=== PATIENT | male | born 1970 | race Caucasian/White ===

== ENCOUNTER 2023-11-06 07:21 | Outpatient (CLI) | payer BC, SELFPAY ==
--- NOTE | ~2023-11-06 | XR_ITS ---
XR shoulder LT min 2V DATE: 11/06/2023 07:53 INDICATION: Nontraumatic left shoulder pain TECHNIQUE: 4 views COMPARISON: None FINDINGS: No fracture or dislocation, periosteal reaction or bone destruction or abnormal soft tissue calcification. IMPRESSION: No significant abnormality Reviewed, dictated and finalized at location B. IMPRESSION: No significant abnormality
== END 2023-11-06 07:22 | disposition home or self-care (01) ==
LOC: ANHIMG 07:27
PROVIDERS: PCP Internal Medicine; Visit Provider Orthopaedic Surgery
DX: M77.8 Other enthesopathies, not elsewhere classified (principal)
CPT/HCPCS: 73030

== ENCOUNTER 2023-11-13 09:28 | Outpatient (CLI) | payer BC, SELFPAY ==
--- NOTE | ~2023-11-13 | MR_ITS ---
EXAMINATION: MR shoulder LT wo con DATE: 11/13/2023 10:02 INDICATION: Left shoulder pain and enthesopathy TECHNIQUE: Magnetic resonance imaging (MRI) of the left shoulder was performed without intravenous co ntrast. Sequences included axial PD-weighted FS FSE, coronal oblique PD-weighted FS FSE, coronal obli que T2-weighted FS FSE, sagittal PD-weighted FS FSE, and sagittal T1-weighted SE. COMPARISON: None. FINDINGS: Coracoacromial arch: The acromion undersurface is curved in morphology (type II). The coracoacromial ligament is normal. M oderate acromioclavicular osteoarthritis with subarticular cystlike changes and small inferiorly dire cted osteophytes. Rotator cuff: Mild supraspinatus and infraspinatus tendinopathy. There is a small articular sided tear along the guevara perior facet footplate of the supraspinatus tendon which extends 10 mm AP. At the anterior margin of the tear there appears to be a small full-thickness component which extends to the bursal surface and which measures 2 mm AP. Mild subscapularis tendinopathy without discrete tear. The teres minor tendo n is normal. Normal rotator cuff muscle bulk and signal. Biceps tendon, glenoid labrum and glenohumeral cartilage: Long head of the biceps tendon is normal. Glenoid labrum is normal. Glenohumeral cartilage is normal. Fluid: Physiologic amount of fluid in the glenohumeral joint and biceps tendon sheath. No loose osteochondr al bodies. Small amount of fluid in the subacromial/subdeltoid bursa consistent with mild bursitis. Bones: Bone alignment is normal. No fracture or pathologic marrow replacing process. IMPRESSION: 1. Mild supraspinatus, infraspinatus and subscapularis tendinopathy with small primarily mild articul ar sided tear along the superior facet footplate of the supraspinatus tendon with tiny full-thickness component anteriorly. 2. Moderate acromioclavicular osteoarthritis. Reviewed, dictated and finalized at location A. IMPRESSION: 1. Mild supraspinatus, infraspinatus and subscapularis tendinopathy with small primarily mild articular sided tear along the superior facet footplate of the s upraspinatus tendon with tiny full-thickness component anteriorly. 2. Moderate acromioclavicular osteoarthritis.
== END 2023-11-13 09:29 | disposition home or self-care (01) ==
LOC: ANHIMG 09:30
PROVIDERS: PCP Internal Medicine; Visit Provider Physician Assistant Surgical
DX: M25.512 Pain in left shoulder (principal); M77.8 Other enthesopathies, not elsewhere classified; M19.012 Primary osteoarthritis, left shoulder
CPT/HCPCS: 73221

== ENCOUNTER 2023-12-04 09:50 | Outpatient (CLI) | payer BC, SELFPAY ==
--- NOTE | 2023-12-04 09:57 | ECG_ITS ---
SEE SCANNED COPY FOR CONFIRMED REPORT MTDD
[2023-12-04 10:33] LABS: Anion Gap 5 mmol/L (4-12); Blood Urea Nitrogen 16 mg/dL (9-20); Calcium 9.5 mg/dL (8.4-10.2); Carbon Dioxide 30 mmol/L (22-30); Chloride 105 mmol/L (98-107); Estimated Glomerular Filt Rate 57; Glucose 185 mg/dL (65-110); Potassium 4.6 mmol/L (3.4-5.0); Sodium 140 mmol/L (137-145)
== END 2023-12-04 09:51 | disposition home or self-care (01) ==
LOC: ANHSURGERY 09:53
PROVIDERS: Anesthesiology; PCP Internal Medicine; Visit Provider Orthopaedic Surgery
DX: Z01.818 Encounter for other preprocedural examination (principal); E78.5 Hyperlipidemia, unspecified; R73.03 Prediabetes
CPT/HCPCS: 36415; 80048; 93005

== ENCOUNTER 2023-12-12 00:37 | Day surgery (SDC) | payer BC, SELFPAY ==
[2023-12-01 09:58] VITALS: BMI 49.1
--- NOTE | 2023-12-01 10:04 | PC.NURSE ---
Report to the Outpatient Waiting Room, entrance under the green pavilion located off [facility], at time 11:00 on date 12/12/23. Planned Procedure Time: 1:00. Time changes happen often and if your time is changed the preop area will call you the afternoon before. - You and your visitor will be asked to self-screen and do not enter if you have any COVID symptoms. - A mask is optional within the hospital at this time. Patients may have clear liquids (water, carbonated beverages, clear teas, apple juice) until 3 hours prior to surgery (10:00) with a maximum of 20 ounces. - No food from midnight until time of surgery Take the following medications with a SIP of water the morning of surgery: ESCITALOPRAM, LORAZEPAM IF NEEDED DO NOT STOP ANY OF YOUR OTHER PRESCRIPTION MEDICATIONS PRIOR TO SURGERY ?EXCEPT THE FOLLOWING Medications to discontinue per physician: VITAMINS Date to take last dose: 12/08/23 LAST DOSE OF MELOXICAM 12/04/23 Please no make-up, nail indonesian, hairspray, perfume, deodorant, or body powder the day of surgery. No jewelry (including any body piercings) or valuables the day of surgery, leave them at home. Please take a shower or bath the night before, or the morning of, surgery with an antibacterial soap. Wear comfortable, loose fitting clothing. - Jewelry must be removed prior to entering the operating room. Rings and piercings that are not removed may be cut off. - The hospital will not accept responsibility for valuables. - Please leave all valuables, including medications, at home the day of surgery. If you are going home after surgery, a licensed double bottom driver must drive you home. - NO public transportation without another adult if you receive anesthesia. - We recommend that an adult stay with you for 24 hours following discharge. - We also recommend that you do not drive, make important decision, drink alcoholic beverages, or take any drugs that were not prescribed by your health care provider for at least 24 hours after your discharge time. Follow any additional instructions given to you from your surgeon. If you or anyone in your household have experienced Covid symptoms in the past week, please notify your surgeon or the nurse liaison at the phone number below for possible testing. Telephone instructions given to PT - BREA and asked if any additional questions and then verbalized understanding. Patient advised to call surgeon office or pre surgery nurse liaison [phone] if any additional questions.
[2023-12-12] VITALS (10 sets, daily range): BP systolic 103–141; BP diastolic 51–93; PULSE 71–100; RESP 9–16; TEMP 36.2–36.3; O2SAT 92–99
--- NOTE | 2023-12-12 10:01 | WPDHPUPDATE1 ---
History and Physical Update Update Date/Time: 12/12/23 10:01 History and Physical has been reviewed, including an updated exam of the patient. There are NO changes in the patient's condition. Risks, benefits, and alternatives have been discussed and questions answered. Patient agrees to proceed with procedure.
[2023-12-12] MEDS: ACETAMINOPHEN 500 MG TABLET 1000 MG PO (11:30)
[2023-12-12] MEDS: LACTATED RINGERS 1,000 ML 30 ML IV CONT ×2 (11:44→15:58)
[2023-12-12 11:48] LABS: Glucose Point of Care 122 mg/dl (65-105)
--- NOTE | 2023-12-12 13:03 | WPDANESEPPF ---
Anes - Initial Pre Proc Eval Procedure: Operation Date: 12/12/23 13:00 Proposed Procedures p Left Shoulder Arthroscopic Rotator Cuff Repair with Subacromial Decompression, Distal Clavicle Excision - Hardy Wadsworth MD Date/Time: 12/12/23 13:03 Surgeon: Hardy Wadsworth MD Pre Op Diagnosis: complete rotator cuff tear Patient Data Age: 53 Gender: M Height: 1.8 m Weight: 158.1 kg Last Vital Signs Temp 97.1 F L 12/12/23 11:48 Pulse 71 12/12/23 11:48 Resp 16 12/12/23 11:48 BP 140/93 H 12/12/23 11:48 Pulse Ox 96 12/12/23 11:48 O2 Del Method Room Air 12/12/23 11:48 Allergies Allergy/AdvReac Type Severity Reaction Status Date / Time lactose Allergy Unknown Unknown Verified 12/01/23 08:13 mold Allergy Unknown Unknown Verified 12/12/23 11:19 monosodium glutamate Allergy Unknown Unknown Verified 12/01/23 08:13 pollen extracts Allergy Unknown Unknown Verified 12/12/23 11:19 Sulfa (Sulfonamide Allergy Unknown Hives Verified 12/01/23 09:55 Antibiotics) Home Medications Medication Instructions Recorded Confirmed Type fenofibrate 150 mg capsule 150 mg PO DAILY 12/29/22 12/12/23 History lorazepam 0.5 mg tablet 0.5 mg PO DAILY PRN Anxiety 12/29/22 12/12/23 History semaglutide 1 mg/dose (2 mg/1.5 1 mg subcut WEEKLY 12/29/22 12/12/23 History mL) subcutaneous pen injector (Ozempic) zolpidem 12.5 mg tablet,extended 12.5 mg PO QHS PRN Insomnia 12/29/22 12/12/23 History release,multiphase meloxicam 15 mg tablet 15 mg PO DAILY #90 tabs 11/15/23 12/12/23 Rx cetirizine 10 mg tablet (Zyrtec) 10 mg PO DAILY 12/01/23 12/12/23 History escitalopram oxalate 20 mg tablet 20 mg PO DAILY 12/01/23 12/12/23 History multivitamin 1 tablet PO DAILY 12/01/23 12/12/23 History testosterone cypionate 100 mg/mL 0.5 mg IM [id number] 12/01/23 12/12/23 History intramuscular oil oxycodone-acetaminophen 5 mg-325 1 - 2 tablet PO Q4-6H PRN pain #30 12/12/23 Rx mg tablet tabs Laboratory Tests 12/12/23 11:45 POC Capillary Glucose 122 H mg/dl (65-105) Patient hx anesthesia problems: none Family hx anesthesia problems: none Results Review: All pre-operative results and documents have been reviewed as part of the pre-operative evaluation. PMFSH Family History Family History Mother Diabetes mellitus Father Family history of primary malignant neoplasm of liver Social History Social History Smoking status: Never smoker Alcohol intake: never Substance use: never Substance use type: does not use Do You Feel Safe in your Home?: Yes Lack of Transportation: No Lack of Food: Never True Current Housing: I Have Housing Concerned About Future Housing: No Difficulty Paying Gas/Electric Bills: No Difficulty Paying for Meds: No Currently Unemployed: No Education: Master's Degree or Higher Difficulty w/ Childcare or Family Care: No Living arrangements: with family Spiritual care concerns: No Anes - Eval Final PreProcedure Day of Procedure 12/12/23 13:03 Patient weight: morbidly obese Heart: regular rate and rhythm Lungs: clear to auscultation Airway: Mallampati scale class II Neurological: alert and oriented Last oral intake: >/= 8 hours ASA classification: III Emergent: no Anesthetic plan: proceed Anesthesia type and monitoring: general ETT and standard monitoring Results Review: All pre-operative results and documents have been reviewed as part of the pre-operative evaluation. Pt w DM, MERARI, not currently using CPAP. His wt has inc approx 20-30 pounds since sleep study completed several years ago. Informed Consent: The patient's anesthetic plan and its attendant risks and benefits were discussed with the patient/family/POA. Questions were solicited and answers provided to the satisfaction of the patient/family/POA.
[2023-12-12] MEDS: KETOROLAC 15 MG/ML VIAL (*BKC) IV PUSH (13:16)
[2023-12-12] MEDS: SCOPOLAMINE 1 MG PATCH 1 PATCH TRANSDERM (13:19)
[2023-12-12] MEDS: ceFAZolin 3 GM/D5W 100 ML 100 ML IVPB (13:25)
[2023-12-12] MEDS: EPINEPHrine HCL INJ 1 MG/ML AMPUL 3 MG IRRIGATION (14:22)
[2023-12-12] MEDS: BUPIVACAINE/EPINEPHRINE 0.5% 30 ML VIAL INFILTRATE (15:18)
--- NOTE | 2023-12-12 15:34 | SUR.OPER ---
patient sent with two shoulder immobilizers per Dr. Wadsworth
--- NOTE | 2023-12-12 15:57 | P.OP_ITS ---
Procedure Note - Detailed Date of Procedure 12/12/23 Pre-op Diagnosis 1. Partial-thickness left shoulder rotator cuff tear 2. Acromioclavicular joint arthritis 3. Impingement syndrome Post-op Diagnosis Same Procedure Performed Left shoulder 1. Arthroscopic rotator cuff repair 2. Arthroscopic subacromial decompression 3. Arthroscopic distal clavicle excision Surgeon Hardy Wadsworth MD Hand Decorator Neema Mullins PA-C Anesthesia General Findings Partial-thickness rotator cuff tear including 10% articular side anterior. Tiny 3 mm bursal side defect with moderate intrasubstance delamination. [id number] repair of the bursal defect and Regeneten tissue implant for the intrasubstance and articular tears. The distal clavicle excised arthroscopically acromioplasty performed. The articular surfaces were healthy. The biceps showed only minimal fraying. Biceps tendon itself showed mild hyperemia but no other abnormalities. The subscapularis was intact. Description of Procedure Preoperative antibiotics were given. The patient was bought brought to the operating room. A general anesthetic was administered. The patient was carefully positioned in the beach chair position. The head and neck were carefully positioned. The non operative extremity was also carefully positioned. The shoulder was prepped and draped in the usual sterile fashion. Examination was performed. Standard posterior and anterior arthroscopic portals were established. Inflow achieved with the arthroscopic pump using saline and epinephrine. The glenohumeral joint was carefully inspected. [No significant glenohumeral joint abnormalities were identified. The articular supraspinatus showed very low-grade 10% fraying. This was gently debrided. Good tissue vascularity and quality was noted.] Attention was turned to the subacromial space. Bursectomy distal clavicle excision and acromioplasty were performed. Separate incision anteriorly was used to complete the distal clavicle excision approximately 12 mm. Acromioplasty was performed with CA ligament release. The small defect in the bursal tissue was lightly debrided and the footprint was roughened. A single [id number] Orthocord suture was placed with the ExpresSew suture Passer. This was tied arthroscopically. A large Regeneten collagen tissue implant was introduced laterally. Five CORRINE tendon anchors were placed medially. Three peek bone anchors were placed laterally. The partial-thickness tear nicely covered. The arthroscopic instruments were removed. The wounds were closed with 3-0 Monocryl subcuticular suture and steri strips. There were no complications. A sling was applied and the patient brought to the recovery room. Physician certified surgical first assistant, Neema uMllins PA-C, required for surgery; including patient positioning, draping, arthroscopic camera operation, maintaining instrument position, suture retrieval. Implants Regeneten collagen implant large size. Five CORRINE soft tissue anchors. Two peek nonabsorbable bone anchors. Estimated Blood Loss 20 Pathology None sent Complications No immediate complications Condition Stable Disposition PACU [facility] Billing Surgery - Charge Forward: Surgery Billing
[2023-12-12 16:07] LABS: Glucose Point of Care 137 mg/dl (65-105)
[2023-12-12] MEDS: fentaNYL CITRATE INJ (*CRX) 100 MCG/2 ML VIAL 25 MCG IV PUSH ×8 (16:39→16:58)
[2023-12-12] MEDS: oxyCODONE HCL (*CRX) 5 MG TAB IR PO (17:35)
== END 2023-12-12 18:25 | disposition home or self-care (01) ==
PROVIDERS: PCP Internal Medicine; Visit Provider Orthopaedic Surgery
PROC: (CPT 29805; principal; 2023-12-12 13:00)
DX: M75.122 Complete rotator cuff tear or rupture of left shoulder, not specified as traumatic (principal); M75.42 Impingement syndrome of left shoulder; M19.012 Primary osteoarthritis, left shoulder; Z79.85 Long-term (current) use of injectable non-insulin antidiabetic drugs; E66.01 Morbid (severe) obesity due to excess calories; Z68.42 Body mass index [BMI] 45.0-49.9, adult
CPT/HCPCS: 29827; 29826; 29824; 82948; A4565; A9270; C1713; J0171; J0690; J1170; J1885; J2250; J3010; J7120